=== PATIENT | male | born 1990 | race Caucasian/White ===

== ENCOUNTER 2022-06-17 20:47 | Emergency (ER) | payer OTHER ==
[2022-06-17 21:07] VITALS: BP 115/58; PULSE 94; RESP 19; TEMP 98.3; BMI 49.2
[2022-06-17] MEDS ORDERED: LACTATED RINGERS SOLUTION 1000 ML INFUS.BAG IV ONE (21:37)
[2022-06-17] MEDS ORDERED: METOCLOPRAMIDE HCL INJECTION 10 MG/2 ML VIAL IVPB ONE (21:37)
[2022-06-17] MEDS ORDERED: METOCLOPRAMIDE HCL INJECTION 10 MG/2 ML VIAL ONE (22:30)
[2022-06-18 01:07] LABS: EOS % 1.7 % (0-4.5); HEMATOCRIT 42.6 % (35.4-49); LYMPH % 27.5 % (8-40); MCH 28.7 pg (25.7-33.7); MCHC 35.1 g/dl (32.0-35.9); MEAN CELL VOLUME 81.8 fl (80-96); MEAN PLT VOLUME 8.8 fl (7.5-11.1); MONO % 6.8 % (3.8-10.2); PLATELET COUNT 310 10^3/uL (134-434); RDW 14.5 % (11.9-15.9); WHITE BLOOD COUNT 10.2 K/mm3 (4.0-10.0)
[2022-06-18 01:20] LABS: INR 1.05 (0.83-1.09); PROTHROMBIN TIME (PATIENT) 12.2 SEC (9.7-13.0)
[2022-06-18 01:23] LABS: ACTIVATED PTT 29.6 SECONDS (25.2-36.5)
[2022-06-18 01:28] LABS: CALCIUM 8.8 mg/dL (8.5-10.1)
[2022-06-18 01:29] LABS: ALBUMIN 3.5 g/dl (3.4-5.0); BLOOD UREA NITROGEN 12.1 mg/dL (7-18); MAGNESIUM 2.3 mg/dL (1.8-2.4)
[2022-06-18 01:31] LABS: CREATININE 1.1 mg/dL (0.55-1.3)
[2022-06-18 01:33] LABS: BILIRUBIN,TOTAL 0.3 mg/dL (0.2-1); TOT PROT 6.9 g/dl (6.4-8.2)
== END 2022-06-18 01:59 | disposition home or self-care (01) ==
LOC: JER 20:47
PROC: 3E033GC Introduction of Other Therapeutic Substance into Peripheral Vein, Percutaneous Approach (ICD-10-PCS; principal; 2022-06-17)
DX: R51.9 Headache, unspecified (principal)
CPT/HCPCS: 36415; 70450-TC; 80053; 83735; 85025; 85610; 85730; 86850; 86900; 86901; 93005; 93010; 99285-25